=== PATIENT | male | born 1980 | race American Indian/Alaskan Native ===

== ENCOUNTER 2018-09-07 13:23 | Emergency (ER) | payer SELFPAY ==
--- NOTE | 2018-09-07 13:50 | Emergency Department Report ---
Blank Doc - Documentation Documentation: This is a 38-year-old male that presents with abdominal pain with nausea and v omiting x1 year. Also stated has increased thirst and urination. Denies followup with PCP. Denies any other complaints. This initial assessment diagnostic orders/clinical plan/treatment(s) is/are subject to change based on patient's health status, clinical progression and re- assessment by fellow clinical providers in the ED. Further treatment and workup at subsequent clinical providers discretion. Patient/guardians urged not to elope from ED s their condition may be serious if not clinically assessed and managed. Initial orders include: 1-Patient sent to [facility] for further evaluation and treatment 2- Labs 3- UA
[2018-09-07 14:06] LABS: Hematocrit 42.2 % (35.5-45.6); Mean Corpuscular HGB Conc 33 % (32-34); Mean Corpuscular Volume 83 fl (84-94); Platelet Count 248 K/mm3 (140-440); Red Blood Count 5.09 M/mm3 (3.65-5.03); Red Cell Distribution Width 14.6 % (13.2-15.2)
[2018-09-07 14:30] LABS: Alanine Aminotransferase 114 units/L (7-56); Albumin 3.9 g/dL (3.9-5); BUN/Creatinine Ratio 7; Blood Urea Nitrogen 6 mg/dL (9-20); Hemolysis Index 8
[2018-09-07 14:57] LABS: Total Cells Counted 100
[2018-09-07 14:58] LABS: Anisocytosis 1+; Platelet Estimate Consistent w Auto
[2018-09-07 15:05] LABS: Bilirubin,Urine NEG (Negative); Blood,Urine NEG (Negative); Color,Urine Amber (Yellow); Mucus,Urine 2+ /HPF; RBC,Urine < 1.0 /HPF (0.0-6.0)
[2018-09-07] MEDS ORDERED: CATAPRES PO ONE ×2 (15:14→16:37)
--- NOTE | 2018-09-07 15:19 | Emergency Department Report ---
ED General Adult HPI - General Chief complaint: Abdominal Pain Stated complaint: FLU SX Time Seen by Provider: 09/07/18 13:44 Source: patient Mode of arrival: Ambulatory Limitations: No Limitations - History of Present Illness Initial comments: Patient is 38 years old male with no significant past medical history but patient does not have any doctor to follow-up with according to his report. Patient presented to the ER complaining of 2 month history of cough, productive with greenish sputum associated with fever and chills sometimes. Patient is al so complaining of generalized body pain abdominal pain and back pain. Patient denies any weakness, numbness or tingling sensation. No headache, chest pain or shortness of breath. Severity scale (0 -10): 5 - Related Data Allergies Allergy/AdvReac Type Severity Reaction Status Date / Time No Known Allergies Allergy Unverified 09/07/18 13:49 ED Review of Systems ROS: Stated complaint: FLU SX Other details as noted in HPI Comment: All other systems reviewed and negative Constitutional: chills, fever ENT: congestion. denies: ear pain, throat pain Respiratory: cough. denies: shortness of breath, SOB with exertion, wheezing Cardiovascular: denies: chest pain Gastrointestinal: abdominal pain. denies: nausea, vomiting, diarrhea, constipation, hematemesis, melena, hematochezia Musculoskeletal: back pain Neurological: denies: headache ED Past Medical Hx - Past Medical History Previous Medical History?: No - Surgical History Past Surgical History?: No - Social History Smoking Status: Current Every Day Smoker Substance Use Type: Alcohol ED Physical Exam - General Limitations: No Limitations General appearance: alert, in no apparent distress - Head Head exam: Present: atraumatic, normocephalic, normal inspection - Eye Eye exam: Present: normal appearance, PERRL - ENT ENT exam: Present: normal exam, normal orophraynx, mucous membranes moist - Neck Neck exam: Present: normal inspection, full ROM. Absent: tenderness, meningismus, lymphadenopathy, thyromegaly - Respiratory Respiratory exam: Present: normal lung sounds bilaterally. Absent: respiratory distress, wheezes, rales, rhonchi, stridor, chest wall tenderness, accessory muscle use, decreased breath sounds, prolonged expiratory - Cardiovascular Cardiovascular Exam: Present: regular rate, normal rhythm, normal heart sounds - GI/Abdominal GI/Abdominal exam: Present: soft, normal bowel sounds. Absent: distended, tenderness, guarding, rebound, rigid, organomegaly, mass, bruit, pulsatile mass - Extremities Exam Extremities exam: Present: normal inspection, full ROM, normal capillary refill. Absent: pedal edema, calf tenderness - Back Exam Back exam: Present: normal inspection, full ROM. Absent: tenderness, CVA tenderness (R), CVA tenderness (L), muscle spasm, paraspinal tenderness, vertebral tenderness, rash noted - Neurological Exam Neurological exam: Present: alert, oriented X3, CN II-XII intact, normal gait, reflexes normal - Psychiatric Psychiatric exam: Present: normal mood - Skin Skin exam: Present: warm, intact, normal color ED Course Vital Signs 09/07/18 13:44 Temperature 98.4 F Pulse Rate 90 Respiratory 18 Rate Blood Pressure 164/119 O2 Sat by Pulse 100 Oximetry ED Medical Decision Making - Lab Data Result diagrams: 09/07/18 13:52 09/07/18 13:52 Critical care attestation.: If time is entered above; I have spent that time in minutes in the direct care of this critically ill patient, excluding procedure time. ED Disposition Clinical Impression: Malignant hypertension, Acute bronchitis, Diabetes mellitus Disposition: DC-01 TO HOME OR SELFCARE Is pt being admited?: No Condition: Stable Instructions: Hypertension (ED), Acute Bronchitis (ED), Diabetes Mellitus Type 2 in Adults (ED) Referrals: [facility] [Provider Group] - 3-5 Days
[2018-09-07 16:38] VITALS: BP 148/113
== END 2018-09-07 16:42 | disposition home or self-care (01) ==
LOC: ED 13:23
DX: J20.9 Acute bronchitis, unspecified (principal); I10 Essential (primary) hypertension; E11.9 Type 2 diabetes mellitus without complications; F17.200 Nicotine dependence, unspecified, uncomplicated
CPT/HCPCS: 36415; 80053; 81001; 82805; 82962; 83690; 85007; 85025; 99283

== ENCOUNTER 2019-05-27 05:21 | Emergency (ER) | payer SELFPAY ==
[2019-05-27] MEDS ORDERED: LIDOCAINE VISCOUS 2% 15 ML ORAL LIQD PO ONE (06:58)
[2019-05-27] MEDS ORDERED: IBUPROFEN 800 MG TAB PO ONE (06:58)
[2019-05-27] MEDS ORDERED: ALUM-MAG HYDROXIDE-SIMETHICONE 200-200-20MG/5ML ORAL LIQD 30 ML PO ONE (06:58)
--- NOTE | 2019-05-27 07:21 | XRay Report ---
CHEST 2 VIEWS INDICATION / CLINICAL INFORMATION: cough x 1 month. COMPARISON: None available. FINDINGS: SUPPORT DEVICES: None. HEART / MEDIASTINUM: No significant abnormality. LUNGS / PLEURA: No significant pulmonary or pleural abnormality. No pneumothorax. ADDITIONAL FINDINGS: No significant additional findings. IMPRESSION: 1. No acute findings. Signer Name: Zackery Ledesma MD Signed: 05/27/2019 7:17 AM Workstation Name: [id number]
--- NOTE | 2019-05-27 08:34 | Emergency Department Report ---
ED General Adult HPI - General Chief complaint: Skin/Abscess/Foreign Body Stated complaint: LUMP ON CHEST Time Seen by Provider: 05/27/19 08:29 Source: patient Mode of arrival: Ambulatory Limitations: No Limitations - History of Present Illness Initial comments: 38-year-old obese male presents to the emergency room reporting that he has a lump on his chest for 3 months. Patient states that he also has burning in his chest. She states that he has shortness of breath at times. Patient does report he has not taken his acid reflux medicine. Patient also started talking tangibly about he thinks he may have tuberculosis. Patient also reports he susanne sears is infected. Patient also reports that the government is followed his every move and that helicopter circulate around his home. Patient denies any suicidal or homicidal ideation. Onset/Timin -: month(s) Location: chest Radiation: non-radiation Severity scale (0 -10): 5 Quality: burning Consistency: intermittent Improves with: none Worsens with: none Associated Symptoms: cough, diaphoresis, shortness of breath. denies: fever/chills Treatments Prior to Arrival: none - Related Data Previous Rx's Medication Instructions Recorded Last Taken Type amLODIPine [Norvasc] 5 mg PO DAILY #30 tab 09/07/18 Unknown Rx hydroCHLOROthiazide [HCTZ] 25 mg PO QDAY #30 tablet 09/07/18 Unknown Rx metFORMIN [Glucophage] 500 mg PO BID #60 tablet 09/07/18 Unknown Rx Allergies Allergy/AdvReac Type Severity Reaction Status Date / Time No Known Allergies Allergy Unverified 09/07/18 13:49 ED Review of Systems ROS: Stated complaint: LUMP ON CHEST Other details as noted in HPI Comment: All other systems reviewed and negative ED Past Medical Hx - Past Medical History Previous Medical History?: Yes Hx Hypertension: Yes ("out of BP med x2 mos") Hx Diabetes: Yes - Surgical History Past Surgical History?: No - Social History Smoking Status: Current Every Day Smoker Substance Use Type: Marijuana - Medications Home Medications: Home Medications Medication Instructions Recorded Confirmed Last Taken Type amLODIPine [Norvasc] 5 mg PO DAILY #30 tab 09/07/18 05/27/19 Unknown Rx hydroCHLOROthiazide [HCTZ] 25 mg PO QDAY #30 tablet 09/07/18 05/27/19 Unknown Rx metFORMIN [Glucophage] 500 mg PO BID #60 tablet 09/07/18 05/27/19 Unknown Rx ED Physical Exam - General Limitations: No Limitations General appearance: alert, in no apparent distress - Head Head exam: Present: atraumatic, normocephalic - Eye Eye exam: Present: PERRL - ENT ENT exam: Present: mucous membranes moist - Neck Neck exam: Present: normal inspection, full ROM - Respiratory Respiratory exam: Present: normal lung sounds bilaterally. Absent: respiratory distress - Cardiovascular Cardiovascular Exam: Present: regular rate, normal rhythm. Absent: systolic murmur, diastolic murmur, rubs, gallop - GI/Abdominal GI/Abdominal exam: Present: soft, normal bowel sounds. Absent: distended, tenderness - Rectal Rectal exam: Present: deferred - Extremities Exam Extremities exam: Present: normal inspection - Neurological Exam Neurological exam: Present: alert, oriented X3, normal gait - Psychiatric Psychiatric exam: Present: normal affect, normal mood - Expanded Psychiatric Exam Expanded Focused psych exam: Present: paranoid, loose associations - Skin Skin exam: Present: warm, dry, intact, normal color. Absent: rash ED Course Vital Signs 05/27/19 05/27/19 05/27/19 05:26 09:48 15:15 Temperature 98.1 F 97.9 F 98.2 F Pulse Rate 96 H 92 H 78 Respiratory 18 18 18 Rate Blood Pressure 166/112 Blood Pressure 164/102 161/93 [Left] O2 Sat by Pulse 100 100 100 Oximetry 05/27/19 05/27/19 16:21 19:00 Temperature 98.0 F Pulse Rate 78 96 H Respiratory 18 Rate Blood Pressure 161/93 Blood Pressure 142/95 [Left] O2 Sat by Pulse 97 Oximetry ED Medical Decision Making - Lab Data Result diagrams: 05/27/19 08:51 05/27/19 08:51 - Radiology Data Radiology results: report reviewed Patient: RILEY BOLTON MR#: [id number] : 1980 Acct:[id number] Age/Sex: 38 / M ADM Date: 05/27/19 Loc: ED Attending Dr: Ordering Physician: WILMER ROMO NP Date of Service: 05/27/19 Procedure(s): XR chest routine 2V Accession Number(s): [id number] cc: WILMER ROMO NP Fluoro Time In Minutes: CHEST 2 VIEWS INDICATION / CLINICAL INFORMATION: cough x 1 month. COMPARISON: None available. FINDINGS: SUPPORT DEVICES: None. HEART / MEDIASTINUM: No significant abnormality. LUNGS / PLEURA: No significant pulmonary or pleural abnormality. No pneumothorax. ADDITIONAL FINDINGS: No significant additional findings. IMPRESSION: 1. No acute findings. Signer Name: Zackery Ledesma MD Signed: 05/27/2019 7:17 AM Workstation Name: [id number] Transcribed By: DT Dictated By: Hector Ledesma MD Electronically Authenticated By: Hector Ledesma MD Signed Date/Time: 05/27/19716 DD/ 5 TD/TT: - Medical Decision Making 38-year-old obese male presents to the emergency room reporting that he has a lump on his chest for 3 months. Patient states that he also has burning in his chest. She states that he has shortness of breath at times. Patient does report he has not taken his acid reflux medicine. Patient also started talking tangibly about he thinks he may have tuberculosis. Patient also reports he thinks is infected. Patient also reports that the government is followed his every move and that helicopter circulate around his home. Patient denies any suicidal or homicidal ideation. Patient will be worked up for psych evaluation with a referral to mental health. Critical care attestation.: If time is entered above; I have spent that time in minutes in the direct care of this critically ill patient, excluding procedure time. ED Disposition Clinical Impression: Psychosis, Delusions Disposition: DC-01 TO HOME OR SELFCARE Is pt being admited?: No Does the pt Need Aspirin: No Condition: Stable Instructions: Brief Psychotic Disorder (ED) Additional Instructions: return if worse Referrals: [facility] [Outside] - 3-5 Days PRIMARY CARE, [Primary Care Provider] - 3-5 Days
[2019-05-27 09:20] LABS: Hematocrit 46.4 % (35.5-45.6); Hemoglobin 14.9 gm/dl (11.8-15.2); Mean Corpuscular HGB Conc 32 % (32-34); Mean Corpuscular Volume 85 fl (84-94); Platelet Count 280 K/mm3 (140-440); Red Blood Count 5.47 M/mm3 (3.65-5.03); Red Cell Distribution Width 14.9 % (13.2-15.2)
[2019-05-27 09:27] LABS: Alanine Aminotransferase 99 units/L (7-56); Albumin 4.3 g/dL (3.9-5); BUN/Creatinine Ratio 12; Blood Urea Nitrogen 11 mg/dL (9-20); Calcium 9.3 mg/dL (8.4-10.2); Hemolysis Index 11
[2019-05-27] MEDS ORDERED: SODIUM CHLORIDE 0.9% 1000 ML 2,000 ML IV ONE (09:48)
[2019-05-27 10:16] LABS: Bilirubin,Urine NEG (Negative); Blood,Urine NEG (Negative); Color,Urine Yellow (Yellow); Mucus,Urine FEW /HPF; WBC,Urine < 1.0 /HPF (0.0-6.0)
[2019-05-27 10:24] LABS: Benzodiazepines Screen,Urine PRESUMPTIVE NEGATIVE; Cannabinoid Screen,Urine PRESUMPTIVE NEGATIVE; Cocaine Screen,Urine PRESUMPTIVE NEGATIVE; Methadone Screen,Urine PRESUMPTIVE NEGATIVE; Opiate Screen,Urine PRESUMPTIVE NEGATIVE
[2019-05-27 10:24] LABS: Platelet Estimate Consistent w Auto; RBC Morphology Normal; Total Cells Counted 100
[2019-05-27 10:43] LABS: Amphetamine Screen,Urine PRESUMPTIVE POSITIVE
[2019-05-27] MEDS ORDERED: hydroCHLOROthiazide 25 MG TAB PO SCH (15:00)
[2019-05-27] MEDS ORDERED: amLODIPine 5 MG TAB PO SCH (15:00)
[2019-05-27] MEDS: metFORMIN 500 MG TAB PO SCH (16:21)
[2019-05-27 20:01] VITALS: BP 142/95
[2019-05-28] MEDS: metFORMIN 500 MG TAB PO SCH (00:16)
== END 2019-05-28 01:30 | disposition home or self-care (01) ==
LOC: ED 05:21 → EEVIPCON 05:21 → ED 05-28 01:30
DX: R06.02 Shortness of breath (principal); R22.2 Localized swelling, mass and lump, trunk; I10 Essential (primary) hypertension; E11.9 Type 2 diabetes mellitus without complications; F17.200 Nicotine dependence, unspecified, uncomplicated; F12.10 Cannabis abuse, uncomplicated; Z79.84 Long term (current) use of oral hypoglycemic drugs
CPT/HCPCS: 36415; 71046; 80053; 80307; 81001; 82550; 82962; 84443; 85007; 85025; 99284; J7030; 80320; G0480

== ENCOUNTER 2020-05-04 00:48 | Emergency (ER) | payer SELFPAY ==
[2020-05-04 01:35] LABS: Hematocrit 41.6 % (35.5-45.6); Hemoglobin 13.7 gm/dl (11.8-15.2); Mean Corpuscular HGB Conc 33 % (32-34); Mean Corpuscular Volume 84 fl (84-94); Platelet Count 293 K/mm3 (140-440); Red Blood Count 4.94 M/mm3 (3.65-5.03); Red Cell Distribution Width 14.8 % (13.2-15.2)
[2020-05-04 01:37] LABS: Bilirubin,Urine NEG (Negative); Blood,Urine NEG (Negative); Color,Urine Yellow (Yellow); Mucus,Urine FEW /HPF; Urobilinogen,Urine < 2.0 mg/dL (<2.0)
[2020-05-04 01:40] LABS: Basophils % (Auto) 0.9 % (0.0-1.8); Eosinophils % (Auto) 2.4 % (0.0-4.3); Lymphocytes % (Auto) 42.8 % (13.4-35.0); Monocytes % (Auto) 7.3 % (0.0-7.3)
[2020-05-04 01:41] LABS: Basophils # (Auto) 0.2 K/mm3 (0.0-0.1); Eosinophils # (Auto) 0.4 K/mm3 (0.0-0.4); Monocytes # (Auto) 1.2 K/mm3 (0.0-0.8)
[2020-05-04 01:50] LABS: Alanine Aminotransferase 56 units/L (7-56); BUN/Creatinine Ratio 8; Blood Urea Nitrogen 8 mg/dL (9-20); Calcium 9.6 mg/dL (8.4-10.2); Hemolysis Index 25
[2020-05-04] MEDS ORDERED: predniSONE 50 MG TAB ONE (04:16)
[2020-05-04] MEDS ORDERED: diphenhydrAMINE 25 MG CAP PO ONE (04:16)
[2020-05-04] MEDS ORDERED: predniSONE 10 MG TAB PO ONE (04:16)
[2020-05-04] MEDS ORDERED: FAMOTIDINE 20 MG TAB ONE (04:18)
[2020-05-04] MEDS ORDERED: KETOROLAC 30 MG/1 ML INJ IV ONE (08:37)
--- NOTE | 2020-05-04 09:24 | Ultrasound Report ---
SCROTAL ULTRASOUND HISTORY: Right-sided testicular pain. FINDINGS: Right testicle measures 3.7 x 2.4 x 2.9 cm. Left testicle measures 3.6 x 2.1 x 2.4 cm. Negative for testicular mass. Both testicles demonstrate appropriate flow. Small bilateral hydroceles are present. IMPRESSION: Small bilateral hydroceles. Signer Name: Levar Soriano MD Signed: 05/04/2020 9:20 AM Workstation Name: [id number]
--- NOTE | 2020-05-04 10:30 | Emergency Department Report ---
ED Male HPI - General Chief complaint: Urogenital-Male Stated complaint: FREQUENT URINATION/BACK PAIN Time Seen by Provider: 05/04/20 08:21 Source: patient Mode of arrival: Ambulatory Limitations: No Limitations - History of Present Illness Initial comments: Patient is a 39-year-old male presents emergency room with complaints of frequent urination that began 2 weeks ago. Patient states that he is also been having right lower back pain for approximately 6 months. Patient states that over the last 2 weeks he began to have right-sided testicular pain which he mostly feels when he lays on his right side. He denies any fall or injury. He denies any dysuria, hematuria, penile discharge, testicular swelling, abdominal pain, fever, nausea, vomiting, diarrhea, numbness, weakness, bowel or bladder incontinence. Patient has a past medical history of diabetes and hypertension. He states that he has been out of his amlodipine for over 2 months. He states that he ran out of his Metformin 3 days ago. He denies any allergies to medications. - Related Data Previous Rx's Medication Instructions Recorded Last Taken Type hydroCHLOROthiazide [HCTZ] 25 mg PO QDAY #30 tablet 09/07/18 Unknown Rx Menthol/Camphor [[place] 1 applicatio TP BID #8 oint...g. 05/04/20 Unknown Rx Ointment] Naproxen [EC-Naproxen] 500 mg PO BID PRN #14 tablet. 05/04/20 Unknown Rx amLODIPine 5 mg PO DAILY #30 tab 05/04/20 Unknown Rx metFORMIN [Glucophage] 500 mg PO BID #60 tablet 05/04/20 Unknown Rx methOCARBAMOL [Robaxin TAB] 500 mg PO BID PRN #14 tab 05/04/20 Unknown Rx Allergies Allergy/AdvReac Type Severity Reaction Status Date / Time No Known Allergies Allergy Verified 01/24/20 06:39 ED Review of Systems ROS: Stated complaint: FREQUENT URINATION/BACK PAIN Other details as noted in HPI Comment: All other systems reviewed and negative ED Past Medical Hx - Past Medical History Previous Medical History?: Yes Hx Hypertension: Yes ("out of BP med x2 mos") Hx Diabetes: Yes ("takes meds some days. ") - Surgical History Past Surgical History?: Yes Hx Appendectomy: Yes - Social History Smoking Status: Current Every Day Smoker Substance Use Type: Alcohol, Marijuana - Medications Home Medications: Home Medications Medication Instructions Recorded Confirmed Last Taken Type hydroCHLOROthiazide [HCTZ] 25 mg PO QDAY #30 tablet 09/07/18 05/27/19 Unknown Rx Menthol/Camphor [[place] 1 applicatio TP BID #8 oint...g. 05/04/20 Unknown Rx Ointment] Naproxen [EC-Naproxen] 500 mg PO BID PRN #14 tablet.dr 05/04/20 Unknown Rx amLODIPine 5 mg PO DAILY #30 tab 05/04/20 Unknown Rx metFORMIN [Glucophage] 500 mg PO BID #60 tablet 05/04/20 Unknown Rx methOCARBAMOL [Robaxin TAB] 500 mg PO BID PRN #14 tab 05/04/20 Unknown Rx ED Physical Exam - General Limitations: No Limitations General appearance: alert, in no apparent distress - Head Head exam: Present: atraumatic, normocephalic - Eye Eye exam: Present: normal appearance - ENT ENT exam: Present: mucous membranes moist - Neck Neck exam: Present: normal inspection, full ROM. Absent: tenderness - Respiratory Respiratory exam: Present: normal lung sounds bilaterally. Absent: respiratory distress, wheezes, rales, rhonchi, stridor, chest wall tenderness, accessory muscle use, decreased breath sounds, prolonged expiratory - Cardiovascular Cardiovascular Exam: Present: regular rate, normal rhythm, normal heart sounds. Absent: systolic murmur, diastolic murmur, rubs, gallop - GI/Abdominal GI/Abdominal exam: Present: soft, tenderness (mild generalized right sided abd ttp), normal bowel sounds. Absent: distended, guarding, rebound, rigid - exam: Present: other (mild right sided testicular ttp, no obvious scrotal edema bilaterally, normal testicular lie, no left-sided testicular tenderness palpation, no epididymal tenderness palpation bilaterally, no obvious lesions or blisters, normal cremasteric reflex, yeast cake cutter: Sanchez, scraper tender) - Back Exam Back exam: Present: normal inspection, full ROM. Absent: CVA tenderness (R), CVA tenderness (L), paraspinal tenderness, vertebral tenderness - Neurological Exam Neurological exam: Present: alert, oriented X3, CN II-XII intact, normal gait. Absent: motor sensory deficit - Psychiatric Psychiatric exam: Present: normal affect, normal mood - Skin Skin exam: Present: warm, dry, intact ED Course Vital Signs 05/04/20 05/04/20 05/04/20 01:01 08:43 10:36 Temperature 98.7 F Pulse Rate 90 84 Respiratory 18 19 16 Rate Blood Pressure 176/118 Blood Pressure 164/100 [Left] O2 Sat by Pulse 98 99 Oximetry ED Medical Decision Making - Lab Data Result diagrams: 05/04/20 01:11 05/04/20 01:11 Lab Results 05/04/20 05/04/20 05/04/20 Range/Units 01:11 01:11 01:15 WBC 16.5 H (4.5-11.0) K/mm3 RBC 4.94 (3.65-5.03) M/mm3 Hgb 13.7 (11.8-15.2) gm/dl Hct 41.6 (35.5-45.6) % MCV 84 (84-94) fl MCH 28 (28-32) pg MCHC 33 (32-34) % RDW 14.8 (13.2-15.2) % Plt Count 293 (140-440) K/mm3 Lymph % (Auto) 42.8 H (13.4-35.0) % Bland % (Auto) 7.3 (0.0-7.3) % Eos % (Auto) 2.4 (0.0-4.3) % Baso % (Auto) 0.9 (0.0-1.8) % Lymph # (Auto) Utility Assembler B[place] # (Auto) 1.2 H (0.0-0.8) K/mm3 Eos # (Auto) 0.4 (0.0-0.4) K/mm3 Baso # (Auto) 0.2 H (0.0-0.1) K/mm3 Seg Neutrophils % 46.6 (40.0-70.0) % Seg Neutrophils # 7.7 (1.8-7.7) K/mm3 Sodium 141 (137-145) mmol/L Potassium 4.1 (3.6-5.0) mmol/L Chloride 98.8 (98-107) mmol/L Carbon Dioxide 27 (22-30) mmol/L Anion Gap 19 mmol/L BUN 8 L (9-20) mg/dL Creatinine 1.0 (0.8-1.3) mg/dL Estimated GFR > 60 ml/min BUN/Creatinine Ratio 8 % Glucose 145 H (75-100) mg/dL POC Glucose 132 H (70-105) Calcium 9.6 (8.4-10.2) mg/dL Total Bilirubin 0.20 (0.1-1.2) mg/dL AST 57 H (5-40) units/L ALT 56 (7-56) units/L Alkaline Phosphatase 86 (35-129) units/L Total Protein 7.0 (6.3-8.2) g/dL Albumin 4.0 (3.9-5) g/dL Albumin/Globulin Ratio 1.3 % Urine Color (Yellow) Urine Turbidity (Clear) Urine pH (5.0-7.0) Ur Specific [place] (1.003-1.030) Urine Protein (Negative) mg/dL Urine Glucose (UA) (Negative) mg/dL Urine Ketones (Negative) mg/dL Urine Blood (Negative) Urine Nitrite (Negative) Urine Bilirubin (Negative) Urine Urobilinogen (<2.0) mg/dL Ur Leukocyte Esterase (Negative) Urine WBC (Auto) (0.0-6.0) /HPF Urine RBC (Auto) (0.0-6.0) /HPF U Epithel Cells (Auto) (0-13.0) /HPF Urine Mucus /HPF 10/15/20 Range/Units Unknown WBC (4.5-11.0) K/mm3 RBC (3.65-5.03) M/mm3 Hgb (11.8-15.2) gm/dl Hct (35.5-45.6) % MCV (84-94) fl MCH (28-32) pg MCHC (32-34) % RDW (13.2-15.2) % Plt Count (140-440) K/mm3 Lymph % (Auto) (13.4-35.0) % Bland % (Auto) (0.0-7.3) % Eos % (Auto) (0.0-4.3) % Baso % (Auto) (0.0-1.8) % Lymph # (Auto) Bland # (Auto) (0.0-0.8) K/mm3 Eos # (Auto) (0.0-0.4) K/mm3 Baso # (Auto) (0.0-0.1) K/mm3 Seg Neutrophils % (40.0-70.0) % Seg Neutrophils # (1.8-7.7) K/mm3 Sodium (137-145) mmol/L Potassium (3.6-5.0) mmol/L Chloride (98-107) mmol/L Carbon Dioxide (22-30) mmol/L Anion Gap mmol/L BUN (9-20) mg/dL Creatinine (0.8-1.3) mg/dL Estimated GFR ml/min BUN/Creatinine Ratio % Glucose (75-100) mg/dL POC Glucose (70-105) Calcium (8.4-10.2) mg/dL Total Bilirubin (0.1-1.2) mg/dL AST (5-40) units/L ALT (7-56) units/L Alkaline Phosphatase (35-129) units/L Total Protein (6.3-8.2) g/dL Albumin (3.9-5) g/dL Albumin/Globulin Ratio % Urine Color Yellow (Yellow) Urine Turbidity Clear (Clear) Urine pH 6.0 (5.0-7.0) Ur Specific [place] 1.018 (1.003-1.030) Urine Protein 100 mg/dl (Negative) mg/dL Urine Glucose (UA) Neg (Negative) mg/dL Urine Ketones Neg (Negative) mg/dL Urine Blood Neg (Negative) Urine Nitrite Neg (Negative) Urine Bilirubin Neg (Negative) Urine Urobilinogen < 2.0 (<2.0) mg/dL Ur Leukocyte Esterase Neg (Negative) Urine WBC (Auto) 3.0 (0.0-6.0) /HPF Urine RBC (Auto) 1.0 (0.0-6.0) /HPF U Epithel Cells (Auto) < 1.0 (0-13.0) /HPF Urine Mucus Few /HPF Vital Signs 05/04/20 05/04/20 05/04/20 01:01 08:43 10:36 Temperature 98.7 F Pulse Rate 90 84 Respiratory 18 19 16 Rate Blood Pressure 176/118 Blood Pressure 164/100 [Left] O2 Sat by Pulse 98 99 Oximetry - Radiology Data Radiology results: report reviewed SCROTAL ULTRASOUND HISTORY: Right-sided testicular pain. FINDINGS: Right testicle measures 3.7 x 2.4 x 2.9 cm. Left testicle measures 3.6 x 2.1 x 2.4 cm. Negative for testicular mass. Both testicles demonstrate appropriate flow. Small bilateral hydroceles are present. IMPRESSION: Small bilateral hydroceles. Signer Name: Levar Soriano MD Signed: 05/04/2020 9:20 AM Workstation Name: [id number] Transcribed By: ES Dictated By: Levar Soriano MD Electronically Authenticated By: Levar Soriano MD Signed Date/Time: 05/04/20919 DD/ 8 TD/TT: CT ABDOMEN AND PELVIS WITH CONTRAST HISTORY: right sided abd pain, elevated WBC COMPARISON: 01/24/2020 TECHNIQUE: Axial CT images were obtained through the abdomen and pelvis after 100 cc of Omnipaque 300 intravenously. Sagittal and coronal reformatted images. All CT scans at this location are performed using CT dose reduction for ALARA by means of automated exposure control. FINDINGS: CT ABDOMEN: Lung Bases: Clear. Liver: Mild hepatomegaly with moderate diffuse fatty infiltration is unchanged. No focal liver lesion. Biliary: No significant abnormality. Spleen: No significant abnormality. Unenlarged. Pancreas: No significant abnormality. Adrenals: No significant abnormality. Kidneys: No significant abnormality. Lymphatics: No lymphadenopathy. Vasculature: No significant abnormality. Bowel/Peritoneum: No significant abnormality. No free air. No free fluid. Appendectomy changes are suspected. CT PELVIS: : No significant abnormality. Osseous Structures: No significant abnormality. Additional Findings: None IMPRESSION: Mild hepatomegaly with moderate diffuse fatty infiltration. No acute process or significant change since 01/24/2020. Signer Name: Jamshid Jimenez Jr, MD Signed: 05/04/2020 10:44 AM Workstation Name: [id number] Transcribed By: TTR Dictated By: JAMSHID JIMENEZ JR, MD Electronically Authenticated By: JAMSHID JIMENEZ JR, MD Signed Date/Time: 05/04/201043 DD/ 40 TD/TT: - Medical Decision Making Patient is a 39-year-old male presents emergency room with complaints of elliot quent urination that began 2 weeks ago. Patient states that he is also been having right lower back pain for approximately 6 months. Patient states that over the last 2 weeks he began to have right-sided testicular pain which he mostly feels when he lays on his right side. He denies any fall or injury. He denies any dysuria, hematuria, penile discharge, testicular swelling, abdominal pain, fever, nausea, vomiting, diarrhea, numbness, weakness, bowel or bladder incontinence. Patient has a past medical history of diabetes and hypertension. He states that he has been out of his amlodipine for over 2 months. He states that he ran out of his Metformin 3 days ago. He denies any allergies to medications. Initial vitals with elevated blood pressure secondary to patient not taking his blood pressure medications for over 2 months, on repeat blood pressure has improved without intervention. Will refill patient's home medications, discussed the importance of primary care follow-up, discussed lifestyle modifications. on exam: mild generalized right sided abd ttp, mild right sided testicular ttp, no obvious scrotal edema bilaterally, normal testicular lie, no left-sided testicular tenderness palpation, no epididymal tenderness palpation bilaterally, no obvious lesions or blisters, normal cremasteric reflex, yeast cake cutter: Sanchez, scraper tender, no CVA tenderness bilaterally, no paraspinal or midline spinal C-spine, T-spine, L-spine tenderness palpation, no step-offs, no deformities, no focal neuro deficits. White blood cell count is 16.5, otherwise stable. UA was within normal limits. Scrotal ultrasound: IMPRESSION: Small bilateral hydroceles. CT abdomen pelvis with IV contrast Mild hepatomegaly with moderate diffuse fatty infiltration. No acute process or significant change since 01/24/2020. Patient given IV Toradol in the emergency department and symptoms improved. Discussed all results with patient and answered questions. Patient given prescription for Metformin, amlodipine, naproxen, Robaxin, [place] balm ointment. Advised patient Please take medication as prescribed as needed. Do not drive or operate heavy machinery while taking muscle relaxer Robaxin. Use ice pack, heating pad, rest, Epson salt bath. Follow-up with a primary care doctor. Follow-up with a urologist. Follow-up with orthopedic doctor. Return to emergency room for any new or worsening symptoms. Please keep a blood pressure log. Eat a low-sodium/low salt diet. Incorporate 30 to 60 minutes of daily exercise. - Differential Diagnosis Orchitis, UTI, colitis, appendicitis, pyelonephritis, nephrolithiasis,strai Critical care attestation.: If time is entered above; I have spent that time in minutes in the direct care of this critically ill patient, excluding procedure time. ED Disposition Clinical Impression: Urinary frequency, Right testicular pain, Bilateral hydrocele, Non compliance w medication regimen, Elevated blood pressure reading Low back pain Qualifiers: Chronicity: acute Back pain laterality: right Sciatica presence: without sciatica Qualified Code(s): M54.5 - Low back pain Abdominal pain Qualifiers: Abdominal location: unspecified location Qualified Code(s): R10.9 - Unspecified abdominal pain Leukocytosis Qualifiers: Leukocytosis type: unspecified Qualified Code(s): D72.829 - Elevated white blood cell count, unspecified Disposition: DC- TO HOME OR SELFCARE Is pt being admited?: No Does the pt Need Aspirin: No Condition: Stable Instructions: Hydrocele (ED), Low Back Strain (ED), Testicle Pain (ED), Low Sodium Diet (ED) Additional Instructions: Please take medication as prescribed as needed. Do not drive or operate heavy machinery while taking muscle relaxer Robaxin. Use ice pack, heating pad, rest, Epson salt bath. Follow-up with a primary care doctor. Follow-up with a urologist. Follow-up with orthopedic doctor. Return to emergency room for any new or worsening symptoms. Please keep a blood pressure log. Eat a low- sodium/low salt diet. Incorporate 30 to 60 minutes of daily exercise. Prescriptions: amLODIPine 5 mg PO DAILY #30 tab Naproxen [EC-Naproxen] 500 mg PO BID PRN #14 tablet.dr PRN Reason: pain metFORMIN [Glucophage] 500 mg PO BID #60 tablet methOCARBAMOL [Robaxin TAB] 500 mg PO BID PRN #14 tab PRN Reason: pain Menthol/Camphor [[place] Ointment] 1 applicatio TP BID #8 oint...g. Referrals: PRIMARY CAREMD [Primary Care Provider] - 2-3 Days JACQUELINE OCHOA MD [Staff Physician] - 3-5 Days [facility] [Provider Group] - 3-5 Days [facility], [LAB/CONTRACT] - 3-5 Days Time of Disposition: 10:54 Print Language: WALLISIAN
[2020-05-04 10:37] VITALS: BP 164/100
--- NOTE | 2020-05-04 10:48 | Cat Scan Report ---
CT ABDOMEN AND PELVIS WITH CONTRAST HISTORY: right sided abd pain, elevated WBC COMPARISON: 01/24/2020 TECHNIQUE: Axial CT images were obtained through the abdomen and pelvis after 100 cc of Omnipaque 300 intravenously. Sagittal and coronal reformatted images. All CT scans at this location are performed using CT dose reduction for ALARA by means of automated exposure control. FINDINGS: CT ABDOMEN: Lung Bases: Clear. Liver: Mild hepatomegaly with moderate diffuse fatty infiltration is unchanged. No focal liver lesion . Biliary: No significant abnormality. Spleen: No significant abnormality. Unenlarged. Pancreas: No significant abnormality. Adrenals: No significant abnormality. Kidneys: No significant abnormality. Lymphatics: No lymphadenopathy. Vasculature: No significant abnormality. Bowel/Peritoneum: No significant abnormality. No free air. No free fluid. Appendectomy changes are escalante spected. CT PELVIS: : No significant abnormality. Osseous Structures: No significant abnormality. Additional Findings: None IMPRESSION: Mild hepatomegaly with moderate diffuse fatty infiltration. No acute process or significant change since 01/24/2020. Signer Name: Jamshid Mims Jr, MD Signed: 05/04/2020 10:44 AM Workstation Name: [id number]
== END 2020-05-04 11:11 | disposition home or self-care (01) ==
LOC: ED 00:48
DX: D72.829 Elevated white blood cell count, unspecified (principal); N50.811 Right testicular pain; N43.2 Other hydrocele; E11.9 Type 2 diabetes mellitus without complications; F17.200 Nicotine dependence, unspecified, uncomplicated; F12.10 Cannabis abuse, uncomplicated; Z79.899 Other long term (current) drug therapy
CPT/HCPCS: 36415; 74177; 80053; 81001; 82962; 85025; 93975; 96374; 99284; J1885; Q9967; J7512

== ENCOUNTER 2020-05-11 21:19 | Emergency (ER) | payer SELFPAY ==
[2020-05-12 00:06] VITALS: BP 152/92
[2020-05-12 01:14] LABS: Hematocrit 47.8 % (35.5-45.6); Hemoglobin 15.6 gm/dl (11.8-15.2); Mean Corpuscular HGB Conc 33 % (32-34); Mean Corpuscular Volume 85 fl (84-94); Platelet Count 258 K/mm3 (140-440); Red Cell Distribution Width 14.6 % (13.2-15.2)
[2020-05-12 01:18] LABS: Bilirubin,Urine NEG (Negative); Blood,Urine NEG (Negative); Color,Urine Amber (Yellow); Mucus,Urine FEW /HPF
[2020-05-12 01:21] LABS: Basophils % (Auto) 0.5 % (0.0-1.8); Eosinophils % (Auto) 2.2 % (0.0-4.3); Monocytes % (Auto) 8.3 % (0.0-7.3)
[2020-05-12 01:22] LABS: Basophils # (Auto) 0.1 K/mm3 (0.0-0.1); Eosinophils # (Auto) 0.2 K/mm3 (0.0-0.4); Monocytes # (Auto) 0.8 K/mm3 (0.0-0.8)
[2020-05-12 01:34] LABS: Albumin 4.2 g/dL (3.9-5); Calcium 9.5 mg/dL (8.4-10.2)
[2020-05-12] MEDS ORDERED: ONDANSETRON 4 MG/2 ML INJ IV ONE (03:55)
[2020-05-12] MEDS ORDERED: SODIUM CHLORIDE 0.9% 1000 ML 1,000 ML IV ONE (03:55)
[2020-05-12] MEDS ORDERED: KETOROLAC 30 MG/1 ML INJ IV ONE (03:55)
--- NOTE | 2020-05-12 05:31 | Emergency Department Report ---
ED Abdominal Pain HPI - General Chief Complaint: Abdominal Pain Stated Complaint: RT SIDE PAIN/FEELING ILL Time Seen by Provider: 05/12/20 01:56 Source: patient Mode of arrival: Ambulatory Limitations: No Limitations - History of Present Illness Initial Comments: Patient is a 39-year-old male with a history of diabetes hypertension, and s appendectomy surgical history of appendectomy, patient presents tonight for right flank pain and dysuria. He denies hematuria. Denies fevers or chills. Patient denies nausea vomiting. Patient is currently voiding well some dysuria. Symptoms started 1 week ago with increasing pain starting 3 days ago. Symptoms are exacerbated by movement and palpation patient symptoms are relieved by nothing tried MD Complaint: abdominal pain, flank pain Onset/Timin -: week(s) Location: RUQ Radiation: R flank Severity scale (0 -10): 3 Quality: aching Consistency: intermittent Improves With: nothing Worsens With: movement Associated Symptoms: nausea. denies: vomiting, chills, constipation - Related Data Previous Rx's Medication Instructions Recorded Last Taken Type hydroCHLOROthiazide [HCTZ] 25 mg PO QDAY #30 tablet 09/07/18 Unknown Rx Menthol/Camphor [[place] 1 applicatio TP BID #8 oint...g. 05/04/20 Unknown Rx Ointment] Naproxen [EC-Naproxen] 500 mg PO BID PRN #14 tablet.dr 05/04/20 Unknown Rx amLODIPine 5 mg PO DAILY #30 tab 05/04/20 Unknown Rx metFORMIN [Glucophage] 500 mg PO BID #60 tablet 05/04/20 Unknown Rx methOCARBAMOL [Robaxin TAB] 500 mg PO BID PRN #14 tab 05/04/20 Unknown Rx Ciprofloxacin HCl [Ciprofloxacin 500 mg PO BID 10 Days #20 tab 05/12/20 Unknown Rx TAB] Naproxen 1,000 mg PO Q6H #30 tablet 05/12/20 Unknown Rx Allergies Allergy/AdvReac Type Severity Reaction Status Date / Time No Known Allergies Allergy Verified 01/24/20 06:39 ED Review of Systems ROS: Stated complaint: RT SIDE PAIN/FEELING ILL Other details as noted in HPI Constitutional: denies: chills, fever Eyes: denies: eye pain, eye discharge, vision change ENT: denies: ear pain, throat pain Respiratory: denies: cough, shortness of breath, wheezing Cardiovascular: denies: chest pain, palpitations Endocrine: no symptoms reported Gastrointestinal: denies: abdominal pain, nausea, diarrhea Genitourinary: denies: urgency, dysuria Musculoskeletal: back pain Skin: denies: rash, lesions Neurological: as per HPI. denies: weakness, numbness, paresthesias, vertigo Psychiatric: denies: anxiety, depression Hematological/Lymphatic: denies: easy bleeding, easy bruising ED Past Medical Hx - Past Medical History Previous Medical History?: Yes Hx Hypertension: Yes ("out of BP med x2 mos") Hx Diabetes: Yes ("takes meds some days. ") - Surgical History Past Surgical History?: Yes Hx Appendectomy: Yes - Social History Smoking Status: Never Smoker Substance Use Type: None - Medications Home Medications: Home Medications Medication Instructions Recorded Confirmed Last Taken Type hydroCHLOROthiazide [HCTZ] 25 mg PO QDAY #30 tablet 09/07/18 05/27/19 Unknown Rx Menthol/Camphor [[place] 1 applicatio TP BID #8 oint...g. 05/04/20 Unknown Rx Ointment] Naproxen [EC-Naproxen] 500 mg PO BID PRN #14 tablet.dr 05/04/20 Unknown Rx amLODIPine 5 mg PO DAILY #30 tab 05/04/20 Unknown Rx metFORMIN [Glucophage] 500 mg PO BID #60 tablet 05/04/20 Unknown Rx methOCARBAMOL [Robaxin TAB] 500 mg PO BID PRN #14 tab 05/04/20 Unknown Rx Ciprofloxacin HCl [Ciprofloxacin 500 mg PO BID 10 Days #20 tab 05/12/20 Unknown Rx TAB] Naproxen 1,000 mg PO Q6H #30 tablet 05/12/20 Unknown Rx ED Physical Exam - General Limitations: No Limitations General appearance: alert, in no apparent distress - Head Head exam: Present: atraumatic, normocephalic - Eye Eye exam: Present: normal appearance, PERRL Pupils: Present: normal accommodation - ENT ENT exam: Present: mucous membranes moist - Neck Neck exam: Present: normal inspection, full ROM. Absent: tenderness, meningismus - Respiratory Respiratory exam: Present: normal lung sounds bilaterally. Absent: respiratory distress, wheezes, stridor, chest wall tenderness - Cardiovascular Cardiovascular Exam: Present: regular rate, normal rhythm, normal heart sounds. Absent: systolic murmur, diastolic murmur, rubs, gallop - GI/Abdominal GI/Abdominal exam: Present: soft, normal bowel sounds. Absent: distended, tenderness, guarding, rebound, rigid, bruit, hernia - Rectal Rectal exam: Present: deferred - Extremities Exam Extremities exam: Present: normal inspection, full ROM, normal capillary refill. Absent: tenderness, pedal edema - Back Exam Back exam: Present: normal inspection, full ROM, tenderness, CVA tenderness (R). Absent: CVA tenderness (L), muscle spasm, paraspinal tenderness, vertebral tenderness, rash noted - Neurological Exam Neurological exam: Present: alert, oriented X3, CN II-XII intact, normal gait, reflexes normal. Absent: motor sensory deficit - Expanded Neurological Exam Expanded Neurological exam: Absent: memory loss-remote event Patient oriented to: Present: person, place Speech: Present: fluid speech Cranial nerves: EOM's Intact: Normal Motor strength exam: RUE: 5, LUE: 5, RLE: 5, LLE: 5 Best Eye Response (Humberto): (4) open spontaneously Best Motor Response (Humberto): (6) obeys commands Best Verbal Response (Jacobson): (5) oriented Jacobson Total: 15 - Psychiatric Psychiatric exam: Present: normal affect, normal mood - Skin Skin exam: Present: warm, dry, intact, normal color. Absent: rash ED Course Vital Signs 05/11/20 23:59 Temperature 98.3 F Pulse Rate 102 H Respiratory 18 Rate Blood Pressure 152/92 O2 Sat by Pulse 96 Oximetry ED Medical Decision Making - Lab Data Result diagrams: 05/12/20 00:22 05/12/20 00:22 Labs 05/12/20 05/12/20 05/12/20 00:22 00:22 Unknown WBC 9.9 RBC 5.60 H Hgb 15.6 H Hct 47.8 H MCV 85 MCH 28 MCHC 33 RDW 14.6 Plt Count 258 Lymph % (Auto) Tooling Specialist [place] % (Auto) 8.3 H Eos % (Auto) 2.2 Baso % (Auto) 0.5 Lymph # (Auto) Tooling Specialist [place] # (Auto) 0.8 Eos # (Auto) 0.2 Baso # (Auto) 0.1 Seg Neutrophils % Tooling Specialist Seg Neutrophils # 2.8 Sodium 140 Potassium 4.0 Chloride 97.2 L Carbon Dioxide 23 Anion Gap 24 BUN 22 H Creatinine 1.7 H Estimated GFR 55 BUN/Creatinine Ratio 13 Glucose 178 H Calcium 9.5 Total Bilirubin 0.20 AST 128 H ALT 136 H Alkaline Phosphatase 89 Total Protein 7.4 Albumin 4.2 Albumin/Globulin Ratio 1.3 Urine Color [place] Urine Turbidity Cloudy Urine pH 5.0 Ur Specific [place] 1.028 Urine Protein 100 mg/dl Urine Glucose (UA) Neg Urine Ketones Tr Urine Blood Neg Urine Nitrite Neg Urine Bilirubin Neg Urine Urobilinogen 2.0 Ur Leukocyte Esterase Neg Urine WBC (Auto) 13.0 H Urine RBC (Auto) 19.0 U Epithel Cells (Auto) < 1.0 Urine Mucus Few - Medical Decision Making Symptoms improved, labs are noted, patient currently voiding without difficulty. UA noted for WBCs leukocytes plan treat for UTI , patient will follow-up with PCP in 2 to 3 days., Will return to emergency department should symptoms worsen. Patient verbalized agreement and understanding with discharge plan. Patient DC'd home in stable condition at this time. Critical care attestation.: If time is entered above; I have spent that time in minutes in the direct care of this critically ill patient, excluding procedure time. ED Disposition Clinical Impression: UTI (urinary tract infection) Qualifiers: Urinary tract infection type: acute cystitis Hematuria presence: without hematuria Qualified Code(s): N30.00 - Acute cystitis without hematuria Disposition: DC-01 TO HOME OR SELFCARE Is pt being admited?: No Does the pt Need Aspirin: No Condition: Stable Instructions: Flank Pain (ED), Urinary Tract Infection in Men (ED) Prescriptions: Ciprofloxacin HCl [Ciprofloxacin TAB] 500 mg PO BID 10 Days #20 tab Naproxen 1,000 mg PO Q6H #30 tablet Referrals: RONALDO THOMPSON MD [Staff Physician] - 3-5 Days Forms: Work/School Release Form(ED) Time of Disposition: 05:45
== END 2020-05-12 06:15 | disposition home or self-care (01) ==
LOC: ED 21:19
DX: N39.0 Urinary tract infection, site not specified (principal)
CPT/HCPCS: 36415; 80053; 81001; 85025; 87086; 96361; 96374; 96375; 99283; J1885; J2405; J7030

== ENCOUNTER 2020-10-03 03:10 | Emergency (ER) | payer SELFPAY ==
[2020-10-03 03:51] VITALS: BP 134/86
--- NOTE | 2020-10-03 05:10 | Emergency Department Report ---
ED ENT HPI - General Chief complaint: Earache Stated complaint: FB/LEFT EAR Time Seen by Provider: 10/03/20 04:52 Source: patient Mode of arrival: Ambulatory Limitations: No Limitations - History of Present Illness Initial comments: 40-year-old -[place] male presents to the emergency room complaining of left ear decrease in hearing and feels like something stuck in his ear for the last 8 hours. Patient denies any discharge from the ear. Denies any pain no fever no chills. When I went to interview patient he was taking a Q-tip in his ear. Patient also reports that is making his anxiety worse. Patient denies any SI or HI. MD complaint: ear pain Onset/Timin -: hour(s) Location: L ear Severity scale (0 -10): 7 (No pain) Consistency: intermittent Improves with: none Worsens with: none Associated Symptoms: hearing loss (Left ear) - Related Data Previous Rx's Medication Instructions Recorded Last Taken Type hydroCHLOROthiazide [HCTZ] 25 mg PO QDAY #30 tablet 09/07/18 Unknown Rx Menthol/Camphor [[place] 1 applicatio TP BID #8 oint...g. 05/04/20 Unknown Rx Ointment] Naproxen [EC-Naproxen] 500 mg PO BID PRN #14 tablet.dr 05/04/20 Unknown Rx amLODIPine 5 mg PO DAILY #30 tab 05/04/20 Unknown Rx metFORMIN [Glucophage] 500 mg PO BID #60 tablet 05/04/20 Unknown Rx methOCARBAMOL [Robaxin TAB] 500 mg PO BID PRN #14 tab 05/04/20 Unknown Rx Ciprofloxacin HCl [Ciprofloxacin 500 mg PO BID 10 Days #20 tab 05/12/20 Unknown Rx TAB] Naproxen 1,000 mg PO Q6H #30 tablet 05/12/20 Unknown Rx Amoxicillin/K Clav Tab [Augmentin 1 tab PO Q12HR 7 Days #14 tab 10/03/20 Unknown Rx 875 mg] Allergies Allergy/AdvReac Type Severity Reaction Status Date / Time No Known Allergies Allergy Verified 10/03/20 03:46 ED Dental HPI - General Chief complaint: Earache Stated complaint: FB/LEFT EAR Time Seen by Provider: 10/03/20 04:52 Source: patient Mode of arrival: Ambulatory Limitations: No Limitations - Related Data Previous Rx's Medication Instructions Recorded Last Taken Type hydroCHLOROthiazide [HCTZ] 25 mg PO QDAY #30 tablet 09/07/18 Unknown Rx Menthol/Camphor [[place] 1 applicatio TP BID #8 oint...g. 05/04/20 Unknown Rx Ointment] Naproxen [EC-Naproxen] 500 mg PO BID PRN #14 tablet. 05/04/20 Unknown Rx amLODIPine 5 mg PO DAILY #30 tab 05/04/20 Unknown Rx metFORMIN [Glucophage] 500 mg PO BID #60 tablet 05/04/20 Unknown Rx methOCARBAMOL [Robaxin TAB] 500 mg PO BID PRN #14 tab 05/04/20 Unknown Rx Ciprofloxacin HCl [Ciprofloxacin 500 mg PO BID 10 Days #20 tab 05/12/20 Unknown Rx TAB] Naproxen 1,000 mg PO Q6H #30 tablet 05/12/20 Unknown Rx Amoxicillin/K Clav Tab [Augmentin 1 tab PO Q12HR 7 Days #14 tab 10/03/20 Unknown Rx 875 mg] Allergies Allergy/AdvReac Type Severity Reaction Status Date / Time No Known Allergies Allergy Verified 10/03/20 03:46 ED Review of Systems ROS: Stated complaint: FB/LEFT EAR Other details as noted in HPI Comment: All other systems reviewed and negative ED Past Medical Hx - Past Medical History Hx Hypertension: Yes ("out of BP med x2 mos") Hx Diabetes: Yes ("takes meds some days. ") - Surgical History Hx Appendectomy: Yes - Social History Smoking Status: Never Smoker Substance Use Type: None - Medications Home Medications: Home Medications Medication Instructions Recorded Confirmed Last Taken Type hydroCHLOROthiazide [HCTZ] 25 mg PO QDAY #30 tablet 09/07/18 05/27/19 Unknown Rx Menthol/Camphor [[place] 1 applicatio TP BID #8 oint...g. 05/04/20 Unknown Rx Ointment] Naproxen [EC-Naproxen] 500 mg PO BID PRN #14 tablet. 05/04/20 Unknown Rx amLODIPine 5 mg PO DAILY #30 tab 05/04/20 Unknown Rx metFORMIN [Glucophage] 500 mg PO BID #60 tablet 05/04/20 Unknown Rx methOCARBAMOL [Robaxin TAB] 500 mg PO BID PRN #14 tab 05/04/20 Unknown Rx Ciprofloxacin HCl [Ciprofloxacin 500 mg PO BID 10 Days #20 tab 05/12/20 Unknown Rx TAB] Naproxen 1,000 mg PO Q6H #30 tablet 05/12/20 Unknown Rx Amoxicillin/K Clav Tab [Augmentin 1 tab PO Q12HR 7 Days #14 tab 10/03/20 Unknown Rx 875 mg] ED Physical Exam - General Limitations: No Limitations General appearance: alert, in no apparent distress - Head Head exam: Present: atraumatic, normocephalic - Eye Eye exam: Present: normal appearance - ENT ENT exam: Present: mucous membranes moist - Expanded ENT Exam Expanded TM/Canal exam: Effusion: Left TM - Neck Neck exam: Present: normal inspection, full ROM - Respiratory Respiratory exam: Absent: accessory muscle use - Neurological Exam Neurological exam: Present: alert, oriented X3, normal gait - Psychiatric Psychiatric exam: Present: normal affect, normal mood - Skin Skin exam: Present: warm, dry, intact, normal color. Absent: rash ED Course Vital Signs 10/03/20 03:46 Temperature 98.2 F Pulse Rate 80 Respiratory 18 Rate Blood Pressure 134/86 O2 Sat by Pulse 96 Oximetry ED Medical Decision Making - Medical Decision Making 40-year-old -[place] male presents to the emergency room complaining of left ear decrease in hearing and feels like something stuck in his ear for the last 8 hours. Patient denies any discharge from the ear. Denies any pain no fever no chills. When I went to interview patient he was taking a Q-tip in his ear. Patient also reports that is making his anxiety worse. Patient denies any SI or HI. Patient has left ear tympanic retraction. I will place patient on antibiotics as he does have tenderness in the mastoid area. Discussed with patient he can follow-up with a primary care provider mental health provider for his anxiety. Patient currently has no SI or HI. Critical care attestation.: If time is entered above; I have spent that time in minutes in the direct care of this critically ill patient, excluding procedure time. ED Disposition Clinical Impression: Retraction of tympanic membrane of left ear Disposition: DC-01 TO HOME OR SELFCARE Is pt being admited?: No Does the pt Need Aspirin: No Condition: Stable Instructions: Earache, Adult Additional Instructions: Please complete antibiotics as prescribed. Follow-up with your primary care provider or hearing health technician. Prescriptions: Amoxicillin/K Clav Tab [Augmentin 875 mg] 1 tab PO Q12HR 7 Days #14 tab Referrals: PRIMARY CAREMD [Primary Care Provider] - 3-5 Days [facility] [Provider Group] - 3-5 Days HERIBERTO RICCI MD [Staff Physician] - 3-5 Days Forms: Work/School Release Form(ED)
== END 2020-10-03 05:20 | disposition home or self-care (01) ==
LOC: ED 03:10
DX: H73.892 Other specified disorders of tympanic membrane, left ear (principal); I10 Essential (primary) hypertension; E11.9 Type 2 diabetes mellitus without complications; Z90.49 Acquired absence of other specified parts of digestive tract; Z79.899 Other long term (current) drug therapy
CPT/HCPCS: 99282

== ENCOUNTER 2021-05-31 20:28 | Emergency (ER) | payer SELFPAY ==
[2021-05-31] MEDS ORDERED: SODIUM CHLORIDE 0.9% 1000 ML 1,000 ML IV ONE (21:13)
--- NOTE | 2021-05-31 21:44 | Emergency Department Report ---
ED General Adult HPI - General Chief complaint: Hyperglycemia Stated complaint: FREQUENT URINATION Time Seen by Provider: 05/31/21 21:12 Source: patient Mode of arrival: Ambulatory Limitations: No Limitations - History of Present Illness Initial comments: Patient is a 40-year-old male presents emergency room complaints of frequent urination for approximately 2 weeks. Patient states that he ran out of his Metformin approximately 4 days ago. He states he is currently on 500 mg twice daily but states that he was previously on 1000 twice daily when he was seeing a primary care doctor. He states he does not have a primary care doctor. He states he also needs a refill of his amlodipine 10 mg daily. Patient states that he also has increased thirst and dry mouth. He denies any fever, nausea, vomiting, diarrhea, abdominal pain, chest pain, shortness of breath, dysuria. No allergies to medications. - Related Data Previous Rx's Medication Instructions Recorded Last Taken Type hydroCHLOROthiazide [HCTZ] 25 mg PO QDAY #30 tablet 09/07/18 Unknown Rx Menthol/Camphor [[place] 1 applicatio TP BID #8 oint...g. 05/04/20 Unknown Rx Ointment] Naproxen [EC-Naproxen] 500 mg PO BID PRN #14 tablet.dr 05/04/20 Unknown Rx amLODIPine 5 mg PO DAILY #30 tab 05/04/20 Unknown Rx metFORMIN [Glucophage] 500 mg PO BID #60 tablet 05/04/20 Unknown Rx methOCARBAMOL [Robaxin TAB] 500 mg PO BID PRN #14 tab 05/04/20 Unknown Rx Ciprofloxacin HCl [Ciprofloxacin 500 mg PO BID 10 Days #20 tab 05/12/20 Unknown Rx TAB] Naproxen 1,000 mg PO Q6H #30 tablet 05/12/20 Unknown Rx Amoxicillin/K Clav Tab [Augmentin 1 tab PO Q12HR 7 Days #14 tab 10/03/20 Unknown Rx 875 mg] Metformin HCl [metFORMIN] 1,000 mg PO BID 30 Days #60 tablet 05/31/21 Unknown Rx amLODIPine 10 mg PO DAILY #30 tab 05/31/21 Unknown Rx Allergies Allergy/AdvReac Type Severity Reaction Status Date / Time No Known Allergies Allergy Verified 10/03/20 03:46 ED Review of Systems ROS: Stated complaint: FREQUENT URINATION Other details as noted in HPI Comment: All other systems reviewed and negative ED Past Medical Hx - Past Medical History Previous Medical History?: Yes Hx Hypertension: Yes ("out of BP med x2 mos") Hx Diabetes: Yes ("takes meds some days. ") - Surgical History Past Surgical History?: Yes Hx Appendectomy: Yes - Social History Smoking Status: Never Smoker Substance Use Type: None - Medications Home Medications: Home Medications Medication Instructions Recorded Confirmed Last Taken Type hydroCHLOROthiazide [HCTZ] 25 mg PO QDAY #30 tablet 09/07/18 05/27/19 Unknown Rx Menthol/Camphor [[place] 1 applicatio TP BID #8 oint...g. 05/04/20 Unknown Rx Ointment] Naproxen [EC-Naproxen] 500 mg PO BID PRN #14 tablet.dr 05/04/20 Unknown Rx amLODIPine 5 mg PO DAILY #30 tab 05/04/20 Unknown Rx metFORMIN [Glucophage] 500 mg PO BID #60 tablet 05/04/20 Unknown Rx methOCARBAMOL [Robaxin TAB] 500 mg PO BID PRN #14 tab 05/04/20 Unknown Rx Ciprofloxacin HCl [Ciprofloxacin 500 mg PO BID 10 Days #20 tab 05/12/20 Unknown Rx TAB] Naproxen 1,000 mg PO Q6H #30 tablet 05/12/20 Unknown Rx Amoxicillin/K Clav Tab [Augmentin 1 tab PO Q12HR 7 Days #14 tab 10/03/20 Unknown Rx 875 mg] Metformin HCl [metFORMIN] 1,000 mg PO BID 30 Days #60 tablet 05/31/21 Unknown Rx amLODIPine 10 mg PO DAILY #30 tab 05/31/21 Unknown Rx ED Physical Exam - General Limitations: No Limitations General appearance: alert, in no apparent distress - Head Head exam: Present: atraumatic, normocephalic - Eye Eye exam: Present: normal appearance - ENT ENT exam: Present: mucous membranes moist - Respiratory Respiratory exam: Present: normal lung sounds bilaterally. Absent: respiratory distress, wheezes, rales, rhonchi, stridor, chest wall tenderness, accessory muscle use, decreased breath sounds, prolonged expiratory - Cardiovascular Cardiovascular Exam: Present: normal rhythm, tachycardia (mildly), normal heart sounds - Neurological Exam Neurological exam: Present: alert, oriented X3 - Psychiatric Psychiatric exam: Present: normal affect, normal mood - Skin Skin exam: Present: warm, dry, intact ED Course Vital Signs 05/31/21 05/31/21 05/31/21 20:59 22:29 22:33 Temperature 99.1 F 98.9 F Pulse Rate 104 H 100 H Respiratory 17 20 20 Rate Blood Pressure 147/98 Blood Pressure 164/109 [Right] O2 Sat by Pulse 99 100 100 Oximetry 05/31/21 23:01 Temperature 97.9 F Pulse Rate 107 H Respiratory 20 Rate Blood Pressure Blood Pressure 140/96 [Right] O2 Sat by Pulse 100 Oximetry ED Medical Decision Making - Lab Data Result diagrams: 05/31/21 21:17 05/31/21 21:17 Lab Results 05/31/21 05/31/21 05/31/21 Range/Units 21:03 21:17 21:17 WBC 12.4 H (4.5-11.0) K/mm3 RBC 5.16 H (3.65-5.03) M/mm3 Hgb 14.4 (11.8-15.2) gm/dl Hct 45.3 (35.5-45.6) % MCV 88 (84-94) fl MCH 28 (28-32) pg MCHC 32 (32-34) % RDW 14.1 (13.2-15.2) % Plt Count 243 (140-440) K/mm3 Lymph % (Auto) 35.9 H (13.4-35.0) % [place] % (Auto) 6.7 (0.0-7.3) % Eos % (Auto) 2.6 (0.0-4.3) % Baso % (Auto) 0.9 (0.0-1.8) % Lymph # (Auto) 4.5 (1.2-5.4) K/mm3 [place] # (Auto) 0.8 (0.0-0.8) K/mm3 Eos # (Auto) 0.3 (0.0-0.4) K/mm3 Baso # (Auto) 0.1 (0.0-0.1) K/mm3 Seg Neutrophils % 53.9 (40.0-70.0) % Seg Neutrophils # 6.7 (1.8-7.7) K/mm3 VBG pH (7.320-7.420) Sodium 132 L (137-145) mmol/L Potassium 4.4 (3.6-5.0) mmol/L Chloride 93.5 L (98-107) mmol/L Carbon Dioxide 26 (22-30) mmol/L Anion Gap 17 mmol/L BUN 10 (9-20) mg/dL Creatinine 0.9 (0.8-1.3) mg/dL Estimated GFR > 60 ml/min BUN/Creatinine Ratio 11 % Glucose 547 H* (75-100) mg/dL POC Glucose 511 H (70-105) mg/dL Calcium 8.9 (8.4-10.2) mg/dL Total Bilirubin 0.40 (0.1-1.2) mg/dL AST 90 H (5-40) units/L ALT 96 H (7-56) units/L Alkaline Phosphatase 111 (35-129) units/L Total Protein 7.6 (6.3-8.2) g/dL Albumin 3.8 L (3.9-5) g/dL Albumin/Globulin Ratio 1.0 % 05/31/21 05/31/21 05/31/21 Range/Units 21:17 22:17 23:05 WBC (4.5-11.0) K/mm3 RBC (3.65-5.03) M/mm3 Hgb (11.8-15.2) gm/dl Hct (35.5-45.6) % MCV (84-94) fl MCH (28-32) pg MCHC (32-34) % RDW (13.2-15.2) % Plt Count (140-440) K/mm3 Lymph % (Auto) (13.4-35.0) % [place] % (Auto) (0.0-7.3) % Eos % (Auto) (0.0-4.3) % Baso % (Auto) (0.0-1.8) % Lymph # (Auto) (1.2-5.4) K/mm3 [place] # (Auto) (0.0-0.8) K/mm3 Eos # (Auto) (0.0-0.4) K/mm3 Baso # (Auto) (0.0-0.1) K/mm3 Seg Neutrophils % (40.0-70.0) % Seg Neutrophils # (1.8-7.7) K/mm3 VBG pH 7.401 (7.320-7.420) Sodium (137-145) mmol/L Potassium (3.6-5.0) mmol/L Chloride (98-107) mmol/L Carbon Dioxide (22-30) mmol/L Anion Gap mmol/L BUN (9-20) mg/dL Creatinine (0.8-1.3) mg/dL Estimated GFR ml/min BUN/Creatinine Ratio % Glucose (75-100) mg/dL POC Glucose 443 H 330 H (70-105) mg/dL Calcium (8.4-10.2) mg/dL Total Bilirubin (0.1-1.2) mg/dL AST (5-40) units/L ALT (7-56) units/L Alkaline Phosphatase (35-129) units/L Total Protein (6.3-8.2) g/dL Albumin (3.9-5) g/dL Albumin/Globulin Ratio % Vital Signs 05/31/21 05/31/21 05/31/21 20:59 22:29 22:33 Temperature 99.1 F 98.9 F Pulse Rate 104 H 100 H Respiratory 17 20 20 Rate Blood Pressure 147/98 Blood Pressure 164/109 [Right] O2 Sat by Pulse 99 100 100 Oximetry 05/31/21 23:01 Temperature 97.9 F Pulse Rate 107 H Respiratory 20 Rate Blood Pressure Blood Pressure 140/96 [Right] O2 Sat by Pulse 100 Oximetry - Medical Decision Making Patient is a 40-year-old male presents emergency room complaints of frequent urination for approximately 2 weeks. Patient states that he ran out of his Metformin approximately 4 days ago. He states he is currently on 500 mg twice daily but states that he was previously on 1000 twice daily when he was seeing a primary care doctor. He states he does not have a primary care doctor. He states he also needs a refill of his amlodipine 10 mg daily. Patient states that he also has increased thirst and dry mouth. He denies any fever, nausea, vomiting, diarrhea, abdominal pain, chest pain, shortness of breath, dysuria. No allergies to medications. Labs significant for elevated blood glucose 547, given 1 L IV fluids and IV insulin with improvement of blood glucose. Patient has some very mild elevation in AST and ALT, appears patient has had this in the past. Venous pH is normal, anion gap is stable, no signs of DKA. Patient given prescription for medication. Advised patient Please take medication as prescribed. Eat a low sugar/low carbohydrate diet. Follow-up with a primary care doctor. Return to emergency room for any new or worsening symptoms. Critical care attestation.: If time is entered above; I have spent that time in minutes in the direct care of this critically ill patient, excluding procedure time. ED Disposition Clinical Impression: Hyperglycemia Disposition: 01 HOME / SELF CARE / HOMELESS Is pt being admited?: No Does the pt Need Aspirin: No Condition: Stable Instructions: Preventing Type 2 Diabetes Mellitus, Hyperglycemia, [id number] Additional Instructions: Please take medication as prescribed. Eat a low sugar/low carbohydrate diet. Follow-up with a primary care doctor. Return to emergency room for any new or worsening symptoms. Prescriptions: amLODIPine 10 mg PO DAILY #30 tab Metformin HCl [metFORMIN] 1,000 mg PO BID 30 Days #60 tablet Referrals: [facility] MD AJIT [Primary Care Provider] - 2-3 Days JACQUELINE OCHOA MD [Staff Physician] - 2-3 Days [facility], [LAB/CONTRACT] - 2-3 Days [facility] [Outside] - 2-3 Days [facility] [Outside] - 2-3 Days Time of Disposition: 23:45 Print Language: PANAMANIAN
[2021-05-31 21:49] LABS: Alanine Aminotransferase 96 units/L (7-56); Albumin 3.8 g/dL (3.9-5); BUN/Creatinine Ratio 11; Blood Urea Nitrogen 10 mg/dL (9-20); Calcium 8.9 mg/dL (8.4-10.2); Hemolysis Index 21
[2021-05-31] MEDS ORDERED: INSULIN REGULAR, HUMAN 100 UNITS/1 ML IV ONE (21:50)
[2021-05-31 21:55] LABS: Basophils # (Auto) 0.1 K/mm3 (0.0-0.1); Basophils % (Auto) 0.9 % (0.0-1.8); Eosinophils # (Auto) 0.3 K/mm3 (0.0-0.4); Eosinophils % (Auto) 2.6 % (0.0-4.3); Hematocrit 45.3 % (35.5-45.6); Hemoglobin 14.4 gm/dl (11.8-15.2); Lymphocytes # (Auto) 4.5 K/mm3 (1.2-5.4); Lymphocytes % (Auto) 35.9 % (13.4-35.0); Mean Corpuscular HGB Conc 32 % (32-34); Mean Corpuscular Volume 88 fl (84-94); Monocytes # (Auto) 0.8 K/mm3 (0.0-0.8); Monocytes % (Auto) 6.7 % (0.0-7.3); Platelet Count 243 K/mm3 (140-440); Red Blood Count 5.16 M/mm3 (3.65-5.03); Red Cell Distribution Width 14.1 % (13.2-15.2)
[2021-06-01 01:06] VITALS: BP 151/105
== END 2021-06-01 01:07 | disposition home or self-care (01) ==
LOC: ED 20:28
DX: E11.65 Type 2 diabetes mellitus with hyperglycemia (principal); I10 Essential (primary) hypertension; Z98.890 Other specified postprocedural states
CPT/HCPCS: 36415; 80053; 82805; 82962; 85025; 96361; 96374; 99283; J7030; J1815

== ENCOUNTER 2021-06-17 22:43 | Emergency (ER) | payer SELFPAY ==
[2021-06-18 00:47] LABS: Bilirubin,Urine NEG (Negative); Blood,Urine NEG (Negative); Color,Urine Yellow (Yellow); Mucus,Urine 2+ /HPF
[2021-06-18 05:38] VITALS: BP 130/82
== END 2021-06-18 05:40 | disposition home or self-care (01) ==
LOC: ED 22:43
DX: R30.0 Dysuria (principal); Z53.21 Procedure and treatment not carried out due to patient leaving prior to being seen by health care provider
CPT/HCPCS: 81001; 82962

== ENCOUNTER 2021-07-27 22:10 | Emergency (ER) | payer SELFPAY ==
[2021-07-27 22:15] VITALS: BP 163/109
[2021-07-28] MEDS ORDERED: SODIUM CHLORIDE 0.9% 1000 ML 1,000 ML IV ONE ×4 (03:02→11:16)
[2021-07-28 06:08] LABS: Hematocrit 44.2 % (35.5-45.6); Mean Corpuscular HGB Conc 32 % (32-34); Mean Corpuscular Volume 87 fl (84-94); Platelet Count 247 K/mm3 (140-440); Red Blood Count 5.06 M/mm3 (3.65-5.03); Red Cell Distribution Width 13.6 % (13.2-15.2)
--- NOTE | 2021-07-28 06:22 | Event Note ---
ED Screening Note Date of service: 07/28/21 Time: 06:20 ED Screening Note: Patient is a 41-year-old -[place] male with a history of morbid obesity, hypertension, [id number] diabetes who presented to the ED with complaint of persistent polydipsia and polyuria for the last 1 week, worse in the last 2 days. Patient states that he has not been able to take his diabetes medications because he ran out of his medications almost 2 months ago. Patient states that he suspects that his blood sugar may be elevated. Patient denies dizziness, syncope, chest pain, shortness of breath, nausea and vomiting or diarrhea, abdominal pain, fever, chills, cough, sore throat, nasal and sinus congestion or change in vision. This initial assessment/diagnostic orders/clinical plan/treatment(s) is/are subject to change based on patients health status, clinical progression and re-assessment by fellow clinical providers in the ED. Further treatment and workup at subsequent clinical providers discretion. Patient/guardian urged not to elope from the ED as their condition may be serious if not clinically assessed and managed. Initial orders include: CBC, CMP, normal saline 2 L IV bolus x1
[2021-07-28 06:28] LABS: Alanine Aminotransferase 120 units/L (7-56); BUN/Creatinine Ratio 14; Blood Urea Nitrogen 13 mg/dL (9-20); Calcium 9.1 mg/dL (8.4-10.2); Hemolysis Index 4
[2021-07-28] MEDS ORDERED: INSULIN REGULAR, HUMAN 100 UNITS/1 ML IV ONE ×4 (06:34→11:16)
--- NOTE | 2021-07-28 06:36 | Emergency Department Report ---
ED General Adult HPI - General Chief complaint: Hyperglycemia Stated complaint: URINATING TOO MUCH PUI?: No Time Seen by Provider: 07/28/21 06:26 Source: patient Mode of arrival: Ambulatory Limitations: No Limitations - History of Present Illness Initial comments: 41-year-old -[place] male with a past medical history of hypertension and hyperlipidemia and type 2 diabetes presents to the ER today with complaints of elevated blood sugar and urinary frequency. Patient states that he has been out of his Metformin for about 1 week. He states that he does not currently have a primary care doctor. He states that since being out of his Metformin has been having urinary frequency, abdominal discomfort and intermittent dysuria. He states that he has not been checking his blood sugars at home, but he could just sense that his blood sugar is elevated. He denies any diarrhea, nausea, vomiting, chest pain, fever, chills or any additional symptoms at this time. MD Complaint: High blood sugar; Urinary frequency -: Gradual, week(s) (1) - Related Data Previous Rx's Medication Instructions Recorded Last Taken Type hydroCHLOROthiazide [HCTZ] 25 mg PO QDAY #30 tablet 09/07/18 Unknown Rx Menthol/Camphor [[place] 1 applicatio TP BID #8 oint...g. 05/04/20 Unknown Rx Ointment] amLODIPine 5 mg PO DAILY #30 tab 05/04/20 Unknown Rx Ciprofloxacin HCl [Ciprofloxacin 500 mg PO BID 10 Days #20 tab 05/12/20 Unknown Rx TAB] Amoxicillin/K Clav Tab [Augmentin 1 tab PO Q12HR 7 Days #14 tab 10/03/20 Unknown Rx 875 mg] amLODIPine 10 mg PO DAILY #30 tab 05/31/21 Unknown Rx Metformin HCl [metFORMIN] 1,000 mg PO BID 30 Days #60 tablet 07/28/21 Unknown Rx Allergies Allergy/AdvReac Type Severity Reaction Status Date / Time No Known Allergies Allergy Verified 06/17/21 22:48 ED Review of Systems ROS: Stated complaint: URINATING TOO MUCH Other details as noted in HPI Comment: All other systems reviewed and negative Constitutional: denies: chills, fever Eyes: denies: eye pain, eye discharge, vision change ENT: denies: ear pain, throat pain Respiratory: denies: cough, shortness of breath, SOB with exertion, SOB at rest, wheezing Cardiovascular: denies: chest pain, palpitations, dyspnea on exertion, edema, syncope, paroxysmal nocturnal dyspnea Gastrointestinal: abdominal pain. denies: nausea, vomiting, diarrhea, constipation, hematemesis, melena, hematochezia Genitourinary: dysuria, frequency. denies: urgency, hematuria, discharge, testicular pain, testicular mass Musculoskeletal: denies: back pain, joint swelling, arthralgia, myalgia Skin: denies: rash, lesions, change in color, change in hair/nails, pruritus Neurological: denies: headache, weakness, numbness, paresthesias, confusion, abnormal gait, vertigo Psychiatric: denies: anxiety, depression, auditory hallucinations, visual hallucinations, homicidal thoughts ED Past Medical Hx - Past Medical History Previous Medical History?: Yes Hx Hypertension: Yes ("out of BP med x2 mos") Hx Diabetes: Yes ("takes meds some days. ") - Surgical History Past Surgical History?: Yes Hx Appendectomy: Yes - Social History Smoking Status: Never Smoker Substance Use Type: None - Medications Home Medications: Home Medications Medication Instructions Recorded Confirmed Last Taken Type hydroCHLOROthiazide [HCTZ] 25 mg PO QDAY #30 tablet 09/07/18 05/27/19 Unknown Rx Menthol/Camphor [[place] 1 applicatio TP BID #8 oint...g. 05/04/20 Unknown Rx Ointment] amLODIPine 5 mg PO DAILY #30 tab 05/04/20 Unknown Rx Ciprofloxacin HCl [Ciprofloxacin 500 mg PO BID 10 Days #20 tab 05/12/20 Unknown Rx TAB] Amoxicillin/K Clav Tab [Augmentin 1 tab PO Q12HR 7 Days #14 tab 10/03/20 Unknown Rx 875 mg] amLODIPine 10 mg PO DAILY #30 tab 05/31/21 Unknown Rx Metformin HCl [metFORMIN] 1,000 mg PO BID 30 Days #60 tablet 07/28/21 Unknown Rx ED Physical Exam - General Limitations: No Limitations General appearance: alert, in no apparent distress, obese - Head Head exam: Present: atraumatic, normocephalic, normal inspection - Eye Eye exam: Present: normal appearance, PERRL, EOMI - ENT ENT exam: Present: normal exam, mucous membranes moist - Neck Neck exam: Present: normal inspection, full ROM. Absent: meningismus - Respiratory Respiratory exam: Present: normal lung sounds bilaterally. Absent: respiratory distress, wheezes, rales, rhonchi - Cardiovascular Cardiovascular Exam: Present: regular rate, normal rhythm, normal heart sounds - GI/Abdominal GI/Abdominal exam: Present: soft. Absent: distended, tenderness, guarding, rebound - Neurological Exam Neurological exam: Present: alert, oriented X3, CN II-XII intact, normal gait - Psychiatric Psychiatric exam: Present: normal affect, normal mood - Skin Skin exam: Present: intact ED Course Vital Signs 07/27/21 22:13 Temperature 98.3 F Pulse Rate 81 Respiratory 18 Rate Blood Pressure 163/109 O2 Sat by Pulse 100 Oximetry ED Medical Decision Making - Lab Data Result diagrams: 07/28/21 05:19 07/28/21 05:19 - Medical Decision Making 0635: Patient has been in ER for 8 hrs prior to my evaluation, screening labs which were ordered at time of arrival were reviewed by me and showed a stable CBC. CMP reviewed and showed that patient blood sugar was 547. Patient had already had a 1 L of IV fluids. Repeat fingerstick after 1 L of IV fluid showed that he had a blood glucose of 437. Second liter of IV fluids will be ordered including insulin. Patient CO2, as well as his anion gap is normal. BUN and creatinine are also normal. His potassium is also normal. At this time I do not see any evidence of DKA. Urinalysis is pending. 1230: Patient blood sugar down to 244 with a total of 3 liters of IV fluids, and a total of 12 units of insulin. Patient urinalysis negative for UTI. Patient currently resting comfortably in recliner. He is not toxic or ill-appearing. He is not in significant distress. He is neurologically intact with a normal g ait. Patient will be given refills on his Metformin, and he was instructed that he can take his medications and be compliant with his medication to keep his sugar controlled. He will be given referral information to local PCP. He was instructed to continue to monitor his blood sugars at home. He was also instructed to increase his water intake, decrease his carbohydrate and his sugar intake. Patient expressed understanding of all instructions and agree with plan. Patient was stable at time of discharge. Critical care attestation.: If time is entered above; I have spent that time in minutes in the direct care of this critically ill patient, excluding procedure time. ED Disposition Clinical Impression: Hypoglycemia due to type 2 diabetes mellitus, Noncompliance with medication regimen, Medication refill Disposition: 01 HOME / SELF CARE / HOMELESS Is pt being admited?: No Does the pt Need Aspirin: No Condition: Stable Instructions: Type 2 Diabetes Mellitus, Self Care, Adult, [id number], Blood Glucose Monitoring, Adult, Diabetes Mellitus Type 2 in Adults (ED) Additional Instructions: I recommend that you start taking the Metformin today, and take it as pre scribed. It is important that she remain compliant with your diabetic medications. Follow-up with your primary care doctor listed on your discharge instructions for continued evaluation and monitoring of your diabetes. I do recommend that you purchase a glucometer from [id number] to monitor your blood sugar twice a day. Increase your water intake. Try to avoid carbohydrates and sweets. Recommend that you try to exercise 30 minutes 3 days a week. Return to the ER if your symptoms worsens in any way. Prescriptions: Metformin HCl [metFORMIN] 1,000 mg PO BID 30 Days #60 tablet Referrals: JACQUELINE OCHOA MD [Staff Physician] - 3-5 Days Forms: Work/School Release Form(ED) Time of Disposition: 12:44
[2021-07-28 06:46] LABS: Basophils % (Manual) 0 % (0.0-1.8); Eosinophils % (Manual) 0 % (0.0-4.3); Monocytes % (Manual) 0 % (0.0-7.3); Total Cells Counted 100
[2021-07-28 06:47] LABS: Platelet Estimate Consistent w Auto; RBC Morphology Normal
[2021-07-28 07:36] LABS: Bilirubin,Urine NEG (Negative); Blood,Urine NEG (Negative); Color,Urine Amber (Yellow); Protein,Urine <15 mg/dL mg/dL (Negative)
== END 2021-07-28 12:53 | disposition home or self-care (01) ==
LOC: ED 22:10
DX: E11.649 Type 2 diabetes mellitus with hypoglycemia without coma (principal); Z91.14 Patient's other noncompliance with medication regimen; Z76.0 Encounter for issue of repeat prescription; I10 Essential (primary) hypertension; Z90.89 Acquired absence of other organs
CPT/HCPCS: 36415; 80053; 81001; 82962; 85007; 85025; 96361; 96374; 96376; 99283; J7030; Q0162; Q9967; J1815